=== PATIENT | male | born 1980 | race Caucasian/White ===

== ENCOUNTER 2024-08-14 06:52 | Day surgery (SDC) | payer OTHER ==
[~2024-08-14] VITALS: Ht 182.9 cm; Wt 140.7 kg
[~2024-08-14 06:52] MED LIST: NS 500 ML IV ONE
[2024-08-14] MEDS ORDERED: ESCITALOPRAM OX10 MG PO (07:21)
[2024-08-14] MEDS ORDERED: Budeprion Xl300 MG PO (07:22)
[2024-08-14] MEDS ORDERED: BUSP5 PO (07:23)
[2024-08-14] MEDS ORDERED: Hydrochlorothia25 MG PO (07:24)
[2024-08-14] MEDS ORDERED: HYDHCL25 PO (07:24)
[2024-08-14] MEDS ORDERED: LOSA25 PO (07:25)
[2024-08-14] MEDS ORDERED: PRAZ2 PO (07:26)
[2024-08-14] MEDS ORDERED: PRAZ5 PO (07:26)
[2024-08-14] MEDS ORDERED: ROSUVASTATIN CA20 MG PO (07:27)
[2024-08-14] MEDS ORDERED: THERA-D2000 UNIT PO (07:30)
[2024-08-14] MEDS ORDERED: NS 500 ML IV ONE (07:35)
[2024-08-14] MEDS ORDERED: FentaNYL Citrate 50 MCG/ML 2 ML Injection ONE (07:41)
[2024-08-14] MEDS ORDERED: Dexamethasone Sod Phos 10 MG/ML 1ML VIAL ONE (07:42)
[2024-08-14] MEDS ORDERED: Ondansetron HCl 2 MG / ML 2ML Vial ONE (07:42)
[2024-08-14] MEDS ORDERED: propofoL 20 ML IV ONE ×2 (07:43→08:31)
--- NOTE | 2024-08-14 07:46 | NUR ---
08/14/24 0746 Jami Santiago TIME OUT PERFORMED AT BEDSIDE WITH DR WALL AT 0743 IMMEDIATELY PRIOR TO INJECTION OF TOTAL OF 9ML SOLUTION CONSISTING OF 1ML 8.4% SODIUM BICARBONATE AND 9ML 1% LIDOCAINE WITH EPI [id number] INTO L HAND PT TOLERATED PROCEDURE WELL.
[2024-08-14 08:33] VITALS: BP 135/86
== END 2024-08-14 08:39 | disposition home or self-care (01) ==
LOC: ORSCSDS 06:52
PROVIDERS: Orthopaedic Surgery
PROC: 01N54ZZ Release Median Nerve, Percutaneous Endoscopic Approach (ICD-10-PCS; principal; 2024-08-14 08:30)
DX: G56.03 Carpal tunnel syndrome, bilateral upper limbs (principal); I10 Essential (primary) hypertension; E78.2 Mixed hyperlipidemia; F43.10 Post-traumatic stress disorder, unspecified; E66.01 Morbid (severe) obesity due to excess calories; Z68.41 Body mass index [BMI] 40.0-44.9, adult; Z79.899 Other long term (current) drug therapy; Z87.891 Personal history of nicotine dependence
CPT/HCPCS: J1100; J2405; J2704; J3010; J7040